=== PATIENT | male | born 1970 | race Caucasian/White ===

== ENCOUNTER 2020-05-17 08:10 | Emergency (ER) | payer BC, SELFPAY ==
[2020-05-17 08:20] VITALS: BP 153/104; PULSE 78; RESP 18; TEMP 36.6; O2SAT 98
--- NOTE | 2020-05-17 08:31 | ED.GENADUL_ITS ---
Discharge Plan Disposition Patient Disposition: HOME Condition: Stable Discharge Details Clinical Impression: Fracture of ankle, medial malleolus, left, closed Primary Care Provider: John Blanca ED Provider: Kandice Davila Home Meds and New Rx's Prescriptions: No Action No Known Home Meds RF: 0 Discharge Instructions Instructions: Ankle Fracture (ED) Additional Instructions: Follow up with primary care provider in 3-5 days. Return to ED sooner if any worsening or concerns. Increase oral fluids. Please take Tylenol or Ibuprofen with food every 4-6 hours as needed for pain and swelling. Follow-up with orthopedics within the next 1 to 2 weeks you are placed on a follow-up list they will contact you with an appointment. If you do not hear fr om them in the next 2 to 3 days we will go ahead and give them a call. Rest, ice, compression, elevation. Nonweightbearing if possible. Use the walking boot and crutches as tolerated. He may take it off for bathing. Referrals: Harrison Villanueva MD [ [facility] STAFF PHYSICIAN] - Discharge Data Discharge Date/Time-TO BE ENTERED AT DEPARTURE: 05/17/20 10:03 Medical Decision Making 49-year-old male presents to the ED with chief complaint of left ankle pain status post skiing accident yesterday. Patient states that he was skiing downhill, caught his left ski on ice and fell forward. He was wearing a helmet denies any head injury, loss of consciousness no neck or back pain. He does have some left medial malleolus tenderness and swelling. He also is also complaining of some right posterior lower leg pain with ambulation. She did take Tylenol yesterday no medications prior to arrival today. He is alert and oriented. At this time x-ray ordered on left ankle, right lower extremity tenderness appears to be more muscular in nature. EXAM: XR ANKLE LT COMPLETE CLINICAL HISTORY: Ski accident, r/o fracture TECHNIQUE: 2D digital imaging was performed. COMPARISON: MR MRI L LOWER JOINT WO CONT from 10/14/2014 FINDINGS: BONES: There is a nondisplaced fracture of the medial malleolus. No bony destructive lesion is seen. JOINTS:The ankle mortise is normally aligned. SOFT TISSUE: Mild soft tissue swelling medially. IMPRESSION: Nondisplaced medial malleolar fracture. Discussed XR results with patient and follow-up and home care, verbalized understanding. Instructed on RICE procedures and placed on orthopedic follow-up list. HPI General Mode of arrival: ambulatory . Date/Time Provider Initiated Documentation: 05/17/20 08:24 . Limitations to Documentation: no limitations . Information obtained by: patient . HPI Narrative: 49-year-old male presents to the ED with chief complaint of left ankle pain status post skiing accident yesterday. Patient states that he was skiing downhill, caught his left ski on ice and fell forward. He was wearing a helmet denies any head injury, loss of consciousness no neck or back pain. He does have some left medial malleolus tenderness and swelling. He also is also complaining of some right posterior lower leg pain with ambulation. She did take Tylenol yesterday no medications prior to arrival today. He is alert and oriented. Related Data Home Medications Medication Instructions Recorded Confirmed Unknown [No Known Home Meds] 05/17/20 05/17/20 Allergies Allergy/AdvReac Type Severity Reaction Status Date / Time No Known Allergies Allergy Unverified 05/17/20 08:28 General Stated Complaint: Orthopedic NAS: 4 Review of Systems All systems reviewed & are unremarkable except as noted in HPI and below Musculoskeletal Musculoskeletal: Reports as per HPI, Reports arthralgias and Reports joint swelling [facility] Social History Smoking/Tobacco Use Status: Former Tobacco Use Smoking risk assessment performed?: Yes Alcohol Intake: current Alcohol Intake frequency: 0-2 drinks per day Alcohol type: beer Drug use: Occasionally Substance use type: marijuana Do you feel safe at home: Yes Do you feel safe in your relationship?: Yes Exam Extrem General: normal to inspection Right upper extremity: normal to inspection Left upper extremity: normal to inspection Right lower extremity: normal to inspection, full ROM and normal capillary refill Left lower extremity: normal capillary refill and ankle Details: tenderness Location: of the medial malleolus and swelling Details: medially; no abrasions, no lacerations, no crepitus, no foreign bodies, no penetrating wound and achilles tendon exam normal Course Vital Signs Vital signs: Vital Signs Temperature 36.6 C 05/17/20 08:20 Pulse 78 05/17/20 08:20 Respiratory Rate 18 05/17/20 08:20 Blood Pressure 153/104 H 05/17/20 08:20 Pulse Oximetry 98 05/17/20 08:20 Temperature 36.6 C 05/17/20 08:20 Temperature Source Skin 05/17/20 08:20 Pulse 78 05/17/20 08:20 Respiratory Rate 18 05/17/20 08:20 Blood Pressure 153/104 H 05/17/20 08:20 Blood Pressure Position Sitting 05/17/20 08:20 Pulse Oximetry 98 05/17/20 08:20 Oxygen Delivery Method Room Air 05/17/20 08:20 Oxygen Flow Rate 0 05/17/20 08:20 Pain Level 8 05/17/20 08:20
[2020-05-17 10:04] VITALS: BP 131/78; PULSE 74; RESP 17; TEMP 36.8; O2SAT 99
== END 2020-05-17 10:03 | disposition home or self-care (01) ==
PROVIDERS: Emergency Provider Registered Nurse Emergency; PCP Family Medicine
DX: S82.55XA Nondisplaced fracture of medial malleolus of left tibia, initial encounter for closed fracture (principal); M79.661 Pain in right lower leg; V00.321A Fall from snow-skis, initial encounter; X50.9XXA Other and unspecified overexertion or strenuous movements or postures, initial encounter; Y93.23 Activity, snow (alpine) (downhill) skiing, snowboarding, sledding, tobogganing and snow tubing
CPT/HCPCS: 27760; 73610

== ENCOUNTER 2020-06-04 09:53 | Outpatient (CLI) | payer BC, SELFPAY ==
--- NOTE | 2020-06-04 08:00 | DI.RAD_ITS ---
EXAM: XR ANKLE LT COMPLETE CLINICAL HISTORY: F/U FRACTURE TECHNIQUE: 2D digital imaging was performed. COMPARISON: CR XR ANKLE LT COMPLETE from 05/17/2020 FINDINGS: BONES: There has been no change in alignment of the medial malleolar fracture. There has developed s ome callus formation about the fracture site. There is now lucency seen in the medial aspect of the talar dome which may represent an osteochondral defect. No new fracture or dislocation. There is an enthesophyte at the Achilles insertion site. JOINTS:The ankle mortise is normally aligned. SOFT TISSUE: There is mild persistent soft tissue swelling about the ankle. IMPRESSION: 1. Healing medial malleolar fracture without change in alignment. 2. New lucency in the medial aspect of the talar dome which may represent an osteochondral defect. DATA REPOSITORY: RADIATION DOSE DELIVERED:
--- NOTE | 2020-06-04 08:15 | DI.RAD_ITS ---
EXAM: XR KNEE LT 2V AP,LAT CLINICAL HISTORY: left ankle fracture. TECHNIQUE: 2D digital imaging was performed. COMPARISON: No exams were available for comparison FINDINGS: BONES: No acute fracture is present. No bony destructive lesion is seen. JOINTS: The knee is normally aligned. No joint effusion is seen. SOFT TISSUE: Normal. IMPRESSION: Normal radiographs of the left knee. DATA REPOSITORY: RADIATION DOSE DELIVERED:
== END 2020-06-04 09:54 ==
LOC: DIORS 09:54
PROVIDERS: PCP Family Medicine; Visit Provider Physician Assistant
DX: S82.52XA Displaced fracture of medial malleolus of left tibia, initial encounter for closed fracture (principal)
CPT/HCPCS: 73560; 73610

== ENCOUNTER 2020-07-01 09:39 | Outpatient (CLI) | payer BC, SELFPAY ==
--- NOTE | 2020-07-01 08:45 | DI.RAD_ITS ---
EXAM: XR ANKLE LT COMPLETE CLINICAL HISTORY: f/u fracture TECHNIQUE: 2D digital imaging was performed. COMPARISON: No exams were available for comparison FINDINGS: BONES: There has been no change in alignment of the fracture involving the distal tibia. Does appear to be a small amount of callus formation about the fracture site medially. The fracture line is sti ll well visualized. No new fracture or dislocation is present. The lucency in the medial talar dome is unchanged. There is an enthesophyte at the Achilles insertion site. JOINTS:The ankle mortise is normally aligned. SOFT TISSUE: Normal. IMPRESSION: Stable distal tibial fracture. DATA REPOSITORY: RADIATION DOSE DELIVERED:
== END 2020-07-01 09:40 | disposition home or self-care (01) ==
LOC: DIORS 09:39
PROVIDERS: PCP Family Medicine; Referring Provider Family Medicine; Visit Provider Student in an Organized Health Care Education/Training Program
DX: S82.392A Other fracture of lower end of left tibia, initial encounter for closed fracture (principal)
CPT/HCPCS: 73610

== ENCOUNTER 2022-01-11 08:38 | Day surgery (SDC) | payer BC, SELFPAY ==
--- NOTE | 2022-01-11 06:59 | W.ANESPRE ---
General Info Date of Service Date Performed: 01/11/22 Height: 5 ft 7 in Weight: 87.685 kg Body Mass Index (BMI): 30.2 Surgical Procedure: Operation Date: 01/11/22 10:10 Proposed Procedure Side Surgeon p Colonoscopy Dana Patel MD s Possible Internal Hemorrhoid Banding Dana Patel MD Meds Allergies and Home Medications Allergies Allergy/AdvReac Type Severity Reaction Status Date / Time grass pollen Allergy Verified 01/11/22 08:49 Home Medication Medication Instructions Recorded bisacodyl 5 mg tablet,delayed 5 mg PO ONCE #4 tabs 12/29/21 release (Dulcolax (bisacodyl)) polyethylene glycol 3350 17 17 g PO ONCE #238 grams 12/29/21 gram/dose oral powder Current Visit Medications: Current Medications Generic Name Dose Route Start Last Admin Trade Name Freq PRN Reason Stop Dose Admin Ringer's Solution 1,000 mls @ 80 mls/hr 01/11/22 06:00 IV 02/09/22 23:59 INFUSION VISH IV Miscellaneous Supplies 1 each 01/11/22 06:00 Iv Access IV 02/09/22 23:59 DIRECTED VISH Sodium Chloride 0 ml 01/11/22 06:00 Normal Saline Flush 10 Ml Syr IV 02/09/22 23:59 PRN PRN Sodium Chloride 0 ml 01/11/22 06:00 Normal Saline 10 Ml Vial IJ 02/09/22 23:59 DIRECTED PRN Sterile Water 0 ml 01/11/22 06:00 Water,Injection,Sterile 10 Ml Vial IJ 02/09/22 23:59 DIRECTED PRN PFSH Active Problems Active Problems: Problem Status Onset Code Screening for colon cancer Z12.11 Sore throat J02.9 Lesion of buccal mucosa K13.70 Medical History Medical History Anal skin tag (04/05/15) Appendicitis Dry cough Hemorrhoids Oral lesion Surgical History Surgical History H/O colonoscopy Tobacco Smoking/Tobacco Use Status: Former Tobacco Use Alcohol Alcohol Intake: current Alcohol intake frequency: 0-2 drinks per day Alcohol type: beer Substance Use Substance use: Daily Substance use type: marijuana Details: smokes Vital Signs and Lab Results Lab Results Blood Type / Crossmatch: No Data to Display Complete Blood Count: No Data to Display Complete Metabolic Panel: No Data to Display Liver Function Panel: No Data to Display Coagulation Panel: No Data to Display Cardiac Panel: No Data to Display Arterial Blood Gas: No Data to Display Venous Blood Gas: No Data to Display Pancreas Panel: No Data to Display Thyroid Panel: No Data to Display Infectious Disease: No Data to Display Blood Cultures: No Data to Display Toxicology Panel: No Data to Display Anesthesia Assessment and Plan Anesthesia History Personal History: No History of Anesthesia Complications Family History: No Family History of Anesthesia Complications Exercise Tolerance Exercise Tolerance: Metabolic Equivalents>4 Pertinent Negatives Pertinent Negatives: No Symptoms of GERD (Well controlled with medication ), No Major Cardiovascular Symptoms or Complaints, No Major Pulmonary Symptoms or Complaints (Quit smoking cigarettes 2000, daily marijauna smoking) and No History of CVA/TIA Cardiac & Pulmonary Exam Cardiac Exam: Normal S1/S2 Heart Sounds Pulmonary Exam: Clear Bilateral Breath Sounds Implantable Cardiac Device Does patient have a Pacemaker or an ICD?: No Airway Exam Known Difficult Airway: No Mallampati Class: 1 Mouth Opening: Normal (> 3cm) Thyromental Distance: Greater than 3 cm Facial Hair: Full [place] Neck Range of Motion: Full ROM Neck Circumference: Normal Teeth Condition: Normal Dentition Airway Comments: Multiple caps (not front teeth) ASA Classification ASA Score: ASA 2 Emergency Case?: No NPO Status NPO Status: NPO Clears >2 hours, Solids >8 hours Anesthesia Plan Resuscitation Status: Full Code Anesthesia Technique: General Anesthesia Airway Planned: Natural Airway Monitors Used: Standard Monitors Preoperative Comments:: 51 yo male for colo. Last colo was 2014 and unremarkable. Sig PMHx: former smoker, occ EtOH, daily cannabis, sore throat for which he saw bryan on 10/19/21 started on PPI.
--- NOTE | 2022-01-11 07:37 | W.COLOREPORT ---
Colonoscopy Report Date of procedure: 01/11/22 Pre-op diagnosis general: colon cancer screening, Family History Post-op diagnosis procedure note: same (and small external hemorrhoids) Procedure: Colonoscopy Surgeon: Dana Patel Anesthesia Type: General:No Airway Estimated blood loss (mL): 0 Pathology: none sent Complications: None Disposition: same day Indications: The patient is here for Colonoscopy pre-op. His last screening was in 2014 and was unremarkable. He has a family history of colon cancer in his father whom was diagnosed in his 70s. He has not had any bowel habit changes, however describes intermittent rectal bleeding following BMs. He would like to proceed with having these evaluated for possible hemorrhoid banding. -Discussed colonoscopy bowel prep as well as the procedure. Discussed possible complications of the procedure to include bleeding, pain, perforation, missed small lesion/polyp, sore throat, aspiration and adverse reaction to the medications. Questions were answered to patient?s satisfaction. No guarantees were implied or given.? Prep: Miralax/Dulcolax Procedure Start Time: 10:16 Procedure End Time: 10:32 Retraction Time: 6 minutes Findings: small external henmorrhoids Procedure Description: After informed consent was obtained the patient was taken to the procedure room and placed in a left decubitous position. Monitors were applied and a time out was done. The patients name, date of , procedure, allergies to medications and metal in their body was reviewed. The patient was then sedated. Once sedated and comfortable a rectal exam was done. External exam revealed small external hemorrhoids. Internal exam revealed a normal sphincter tone and no palpable masses. The prostate felt smooth. The scope was then introduced and retro-flexed. No internal hemorrhoids, polyps or masses were identified on retro-flexion. The scope was then advanced to the cecum without difficulty. The ileocecal vlave and appendiceal orifice were identified. The prep was adequate. The scope was then slowly retracted over 6 minutes back into the rectum. There were no polyps and no diverticulosis noted. The scope was removed and the patient was woken up and taken back to Same day surgery in stable condition. The patient tolerated the procedure well and there were no immediate complications. Follow up: The patient should follow up in 5 years unless they develop changes in bowel habits or other new gastrointestinal complaints.
--- NOTE | 2022-01-11 07:39 | W.PM.DSUDISC ---
Discharge Plan Disposition Patient Disposition: HOME Condition: Good Discharge Details Reason For Visit: colonoscopy Attending Provider: Dana Patel Primary Care Provider: John Blanca Home Meds and New Rx's Prescriptions: Discontinued bisacodyl [Dulcolax (bisacodyl)] 5 mg tablet,delayed release (DR/EC) 5 mg PO ONCE Qty: 4 0RF Rx Instructions: Take according to provider's instructions for colonoscopy prep. polyethylene glycol 3350 17 gram/dose powder 17 g PO ONCE Qty: 238 0RF Rx Instructions: To be taken as directed by prescriber's office for colonoscopy prep. Discharge Instructions Instructions: Hemorrhoids (DC) Additional Instructions: Findings: Small grade one external hemorrhoids Follow up: 5 years Please call if you develop: fevers >101.5 Nausea or Vomiting Abdominal pain that is not transient Rectal bleeding that is more then a tbsp A hard abdomen and inability to pass gas DAY SURGERY UNIT POST ENDOSCOPY INSTRUCTIONS Instructions for everyone who is given Anesthesia: For your safety, please do the following for the next 24 Hours: a. Do not drive or operate dangerous equipment b. Do not drink alcohol beverages or use any recreational drugs for the first 24 hours or while taking pain medications. The medications in your body may have a reaction that can be dangerous. c. Do not make any important decisions or sign any important papers 1. Generally there are no restrictions on your activity after a day or so has gone by, but you may feel a bit fatigued for a few days. 2. After you arrive home you may have a light meal and return to a normal diet as you can tolerate it without feeling sick to your stomach. 3. After surgery, you may feel pain or discomfort. This should be only transient, but if it persists please contact your doctor. 4. If there are any questions regarding the findings of your procedure, please feel free to contact your doctor. 6. If you are unable to contact your doctor with a problem, contact the hospital at [phone]. 7. Continue all your regular medications unless directed otherwise. I understand the above instructions and have no questions. Signature of Patient or Responsible Adult Escort Date/Time Name of Responsible Adult Escort Signature of Nurse Date/Time Activity:: Activity as Tolerated Diet:: high fiber Discharge Orders Discharge Orders: Discharge Order (Routine); Ordered 01/11/22 Ordered By: Dana Patel
[2022-01-11 08:45] VITALS: BP 121/83; PULSE 51; RESP 18; TEMP 36.1; O2SAT 97
[2022-01-11] MEDS: Lactated Ringers 1,000 ML 80 ML IV (09:02)
[2022-01-11 09:29] VITALS: BMI 30.2
--- NOTE | 2022-01-11 10:41 | W.ANESPOSTOP ---
Postoperative Evaluation Date, Time and Location Date Performed: 01/11/22 Time Performed: 10:42 Patient Location: Day Surgery Unit Vital Signs Most Recent Imported Vital Signs: Most Recent Vital Signs Temp Pulse Resp BP Pulse Ox 36.1 C L 51 L 18 121/83 97 01/11/22 08:45 01/11/22 08:45 01/11/22 08:45 01/11/22 08:45 01/11/22 08:45 Most Recent Manually Entered Vital Signs: Adult Blood Pressure: 132/99 Heart Rate: 65 Respirations: 12 Oxygen Saturation (%): 97 Temperature (C): 36.3 C Pain Score (0-10 Scale): 0 Assessment Mental Status: Awake (Alert & Oriented to Patient Baseline) Airway and Respiratory Function: Patent airway with normal (patient baseline) respiratory exam Cardiovascular Function: Hemodynamically Stable Hydration Status: Adequately Hydrated Nausea & Vomiting: No Nausea or Vomiting Pain: Pt. Denies Any Pain Peripheral Nerve Block: Patient did not receive a nerve block
[2022-01-11 10:42] VITALS: BP 132/99; PULSE 65; RESP 16; TEMP 36.4; O2SAT 97
[2022-01-11 10:43] VITALS: BP 132/99; PULSE 65; RESP 12; TEMPC 36.3; O2SAT 97
[2022-01-11 11:05] VITALS: BP 134/96; PULSE 51; RESP 18; TEMP 36.4; O2SAT 99
== END 2022-01-11 08:39 | disposition home or self-care (01) ==
PROVIDERS: PCP Family Medicine; Visit Provider Surgery
PROC: 0DJD8ZZ Inspection of Lower Intestinal Tract, Via Natural or Artificial Opening Endoscopic (ICD-10-PCS; CPT 45378; principal; 2022-01-11 10:00)
DX: Z12.11 Encounter for screening for malignant neoplasm of colon (principal); Z80.0 Family history of malignant neoplasm of digestive organs; K64.4 Residual hemorrhoidal skin tags
CPT/HCPCS: 45378

== ENCOUNTER 2023-05-09 18:26 | Outpatient (REF) | payer BC, SELFPAY ==
[2023-05-09 20:24] LABS: ALT 26 U/L (16-63); AST 16 U/L (15-37); Albumin 3.7 g/dL (3.4-5.0); Alkaline Phosphatase 142 U/L (46-116); BUN 19 mg/dL (7-18); Bilirubin, Total 0.5 mg/dL (0.2-1.0); CREATININE 1.1 mg/dL (0.70-1.30); Calcium 8.9 mg/dL (8.5-10.1); Calculated LDL 132 mg/dL (<100); Chloride 105 mmol/L (98-107); Cholesterol 209 mg/dL (<200); Estimated GFR 79.77 (mL/min/1.73m2); Glucose 98 mg/dL (74-106); HDL Cholesterol 42 mg/dL (40-60); Potassium 4.4 mmol/L (3.5-5.1); Sodium 140 mmol/L (136-145); Total Protein 7.4 g/dL (6.4-8.2); Triglyceride 178 mg/dL (<150)
== END 2023-05-09 18:27 | disposition home or self-care (01) ==
LOC: NCHCN 18:26
PROVIDERS: PCP Family Medicine; Visit Provider Nurse Practitioner Family
DX: Z72.89 Other problems related to lifestyle (principal); E78.5 Hyperlipidemia, unspecified
CPT/HCPCS: 80053; 80061